=== PATIENT | female | born 1965 | race Caucasian/White ===

== ENCOUNTER 2016-11-22 08:52 | Day surgery (SDC) | payer OTHER ==
[~2016-11-22] VITALS: Ht 157.5 cm; Wt 54.0 kg
[~2016-11-22 08:52] MED LIST: SIMV5TAB50 PO
[2016-11-22 09:58] VITALS: Ht 157.5 cm; Wt 54.0 kg
[2016-11-22 10:28] VITALS: BP 126/75; PULSE 85; RESP 16
[2016-11-22] MEDS ORDERED: MIDAZOLAM 1 MG/ML 2 ML INJ ONE ×3 (11:11)
[2016-11-22] MEDS ORDERED: FENTAnyl 50 MCG/ML VIAL ONE (11:11)
[2016-11-22 11:32] VITALS: BP 123/68; RESP 20
--- NOTE | 2016-11-22 11:40 | GILP ---
DATE OF PROCEDURE: NAME OF PROCEDURES: 1. Esophagogastroduodenoscopy and biopsy. 2. Colonoscopy. SURGEON: Brandyn Brantley MD PREOPERATIVE DIAGNOSES: 1. Abdominal pain. 2. Screening colonoscopy. POSTOPERATIVE DIAGNOSES 1. Gastritis with erosions. 2. Gastric mucosal biopsies were taken for Helicobacter pylori test. 3. Colonoscopy all the way to the cecum. 4. Internal hemorrhoids. 5. No colon neoplasm was identified. INDICATION FOR THE PROCEDURE: Ms. Megan Ta is a 50-year-old female patient who had upper abdomi nal pain, not responding to therapy. She also needed screening colonoscopy. The procedures and possible complications were well explained to the patient. The patient understoo d and consented to the procedure. DESCRIPTION OF PROCEDURE: Under the influence of fentanyl and Versed, the gastroscope was carefully introduced into the esophagus and under direct vision, it was advanced to the stomach and through t he pylorus into the duodenal bulb and descending duodenum. FINDINGS: ESOPHAGUS: The mucosa was normal. STOMACH: The patient had gastritis with erosions. Gastric mucosal biopsies were taken for H. pylor i test. DUODENUM: Normal. The colonoscope was carefully introduced in the rectum and under direct vision, it was advanced all the way to the cecum. FINDINGS: The patient had internal hemorrhoids. No colon neoplasm was identified. She tolerated the procedures very well and there was no complication from the procedures. At the en d of the procedures, she was awake with stable vital signs and she was discharged home to the care o f her family. IMPRESSION: 1. Gastritis with erosions. 2. Gastric mucosal biopsies were taken for Helicobacter pylori test. 3. Multiple small gastric polyps. 4. Colonoscopy all the way to the cecum. 5. Internal hemorrhoids. 6. No colon neoplasm was identified. PLAN: 1. Omeprazole 40 mg p.o. q.a.m. 2. Await histopathology report. 3. Next screening colonoscopy in 10 years. Dictated By: BRANDYN SUE/OSMAR Conf#: [id number] DID#: [id number]
== END 2016-11-22 13:52 | disposition home or self-care (01) ==
LOC: GIL 08:52
PROVIDERS: ATTEND Internal Medicine Gastroenterology
DX: Z12.11 Encounter for screening for malignant neoplasm of colon (principal); K29.60 Other gastritis without bleeding; K64.8 Other hemorrhoids
CPT/HCPCS: 43239; 45378; 87081; J2250; J3010; Z7610